=== PATIENT | female | born 1955 | race Caucasian/White ===

== ENCOUNTER → 2021-03-21 | Outpatient (CLI) | payer OTHER ==
--- NOTE | 2021-03-21 16:20 | KCIC ---
CT for coronary artery calcium scoring without IV contrast 03/21/2021 CLINICAL HISTORY: Hyperlipidemia. TECHNIQUE: Unenhanced, contiguous, 3 mm axial sections were obtained through the heart with the field -of-view limited to the heart. One or more of the following individualized dose reduction techniques were utilized for this study: 1. Automated exposure control. 2. Adjustment of the mA and/or kV according to patient size. 3. Use of iterative reconstruction technique. Findings: Visual inspection of the coronary arteries demonstrate calcified plaque involving the left anterior descending artery. The heart is mildly enlarged. Scattered atherosclerotic calcification of the thoracic aorta and its branches is seen. Linear bands of subsegmental atelectasis is seen involvi ng both lower lobes. The computer generated calcium scoring utilizing WISDOM-130 criteria are as as follows: Left main artery 0.0 Left anterior descending artery 171.7 Left circumflex artery 0.0 Right coronary artery 0.0 The total calcium score is 171.7 Table: 0: No plaque is present. The chance of significant heart disease is less than 5 percent and correspon ds to a very low risk for myocardial infarction. 1-10: A small amount of plaque is present the chance of significant heart disease is less than 10 per cent and corresponds to a low risk for myocardial infarction. 11-100: Plaque is present. This correlates with mild heart disease and a moderate risk for myocardial infarction. 101 to 400: A moderate amount of plaque is present. This correlates with heart disease and a moderate to high risk for myocardial infarction. Over 400: A large amount of plaque is present. This correlates with a greater than 90 percent chance of a high-grade stenosis. The risk for myocardial infarction is high. IMPRESSION: The total coronary artery calcium score is 171.7. This corresponds to a moderate to high risk for myocardial infarction. Electronically signed by: Freddy Harrison MD (03/21/2021 4:17 PM) [id number]
== END ==
LOC: KCIC CT 12:25
PROVIDERS: ATTEND Specialist
DX: I25.10 Atherosclerotic heart disease of native coronary artery without angina pectoris (principal); E78.2 Mixed hyperlipidemia; I21.29 ST elevation (STEMI) myocardial infarction involving other sites
CPT/HCPCS: 75571